=== PATIENT | male | born 1980 | race Caucasian/White ===

== ENCOUNTER 2016-12-27 10:32 | Emergency (ER) | payer BC ==
[~2016-12-27] VITALS: Ht 177.8 cm; Wt 83.0 kg
[~2016-12-27 10:32] MED LIST: ANAPROX DS550 MG PO; AUGMENTIN 875 M1 TAB PO; CELEXA40 MG PO; CLARITIN10 MG PO; CYCLOBENZAPRINE10 MG PO; CYCLOBENZAPRINE5 M3 PO; HYDROCODONE BIT1 T11 PO; IBU800 MG PO; Motrin,Rufen800 MG PO; PREDNICOT20 MG PO; VICODIN 5/500 505 MG PO
[2016-12-27 10:57] VITALS: BP 138/78
[2016-12-27] MEDS ORDERED: 'PARAFON FORTE500 M1 PO (11:06)
[2016-12-27] MEDS ORDERED: NAPROSYN500 MG PO (11:06)
== END 2016-12-27 12:22 | disposition home or self-care (01) ==
LOC: ED 10:32
DX: S39.012A Strain of muscle, fascia and tendon of lower back, initial encounter (principal); R03.0 Elevated blood-pressure reading, without diagnosis of hypertension; F17.200 Nicotine dependence, unspecified, uncomplicated; X58.XXXA Exposure to other specified factors, initial encounter; Y93.89 Activity, other specified; Y92.89 Other specified places as the place of occurrence of the external cause; Y99.8 Other external cause status

== ENCOUNTER 2018-12-08 19:22 | Emergency (ER) | payer BC ==
[~2018-12-08] VITALS: Ht 177.8 cm; Wt 93.0 kg
[~2018-12-08 19:22] MED LIST changes: +'PARAFON FORTE500 M1 PO; +NAPROSYN500 MG PO
[2018-12-08 19:23] VITALS: BP 145/92
[2018-12-08] MEDS ORDERED: IBUPROFEN600 MG PO ×3 (19:41→19:46)
[2018-12-08] MEDS ORDERED: AMOXICILLIN500 M2 PO ×3 (19:41→19:46)
== END 2018-12-08 19:57 | disposition home or self-care (01) ==
LOC: ED 19:22
DX: K02.9 Dental caries, unspecified (principal); F17.200 Nicotine dependence, unspecified, uncomplicated

== ENCOUNTER 2018-12-18 13:16 | Emergency (ER) | payer BC ==
[~2018-12-18] VITALS: Ht 177.8 cm; Wt 93.0 kg
[~2018-12-18 13:16] MED LIST changes: +AMOXICILLIN500 M2 PO; +IBUPROFEN600 MG PO
[2018-12-18 13:18] VITALS: BP 144/94
[2018-12-18] MEDS ORDERED: Motrin,Rufen800 MG PO (13:46)
[2018-12-18] MEDS ORDERED: METHOCARBAMOL500 M1 PO (13:46)
[2018-12-18] MEDS ORDERED: MEDROL DOSEPAK4 MG PO (13:46)
== END 2018-12-18 14:05 | disposition home or self-care (01) ==
LOC: ED 13:16
DX: M54.42 Lumbago with sciatica, left side (principal); E78.00 Pure hypercholesterolemia, unspecified; Z79.2 Long term (current) use of antibiotics; Z79.899 Other long term (current) drug therapy

== ENCOUNTER 2019-08-21 17:24 | Emergency (ER) | payer BC ==
[~2019-08-21] VITALS: Ht 177.8 cm; Wt 87.1 kg
[~2019-08-21 17:24] MED LIST changes: +MEDROL DOSEPAK4 MG PO; +METHOCARBAMOL500 M1 PO
[2019-08-21 17:35] VITALS: BP 139/92
[2019-08-21] MEDS ORDERED: IBU800 MG PO (19:25)
== END 2019-08-21 19:54 | disposition home or self-care (01) ==
LOC: ED 17:24
DX: S93.401A Sprain of unspecified ligament of right ankle, initial encounter (principal); F32.9 Major depressive disorder, single episode, unspecified; E78.00 Pure hypercholesterolemia, unspecified; F17.200 Nicotine dependence, unspecified, uncomplicated; Z79.899 Other long term (current) drug therapy; X50.1XXA Overexertion from prolonged static or awkward postures, initial encounter; Y93.89 Activity, other specified; Y92.89 Other specified places as the place of occurrence of the external cause; Y99.8 Other external cause status

== ENCOUNTER 2020-01-12 23:49 | Emergency (ER) | payer BC ==
[~2020-01-12] VITALS: Ht 177.8 cm; Wt 95.3 kg
[2020-01-13 01:03] LABS: BASO # 0.1 10*3/uL (0.0-0.1); BASO % 0.6 % (0.0-1.0); EOS # 0.5 10*3/uL (0.0-0.4); EOS % 4.3 % (1.0-4.0); HEMATOCRIT 46.4 % (42.0-52.0); LYMPH # 4.3 10*3/uL (1.3-4.4); LYMPH % 34.1 % (27.0-41.0); MEAN CELL VOLUME 93.2 fl (80.0-94.0); MEAN CORPUSCULAR HGB 31.3 pg (27.0-31.0); MEAN CORPUSCULAR HGB CONC 33.6 g/dl (33.0-37.0); MEAN PLATELET VOLUME 9.2 fl (9.6-12.3); MONO % 7.6 % (3.0-9.0); NEUT # 6.6 10*3/uL (2.3-7.9); NEUT % 52.8 % (47.0-73.0); PLATELET COUNT AUTOMATED 381 10*3/uL (130-400); RED BLOOD COUNT 4.98 10*6/uL (4.50-5.90); RED CELL DISTRI WIDTH 12.3 % (0-14.5); WHITE BLOOD COUNT 12.5 10*3/uL (4.8-10.8)
[2020-01-13 01:20] LABS: ALBUMIN 3.7 gm/dl (3.1-4.5); ALKALINE PHOSPHATASE 87 U/L (45-117); BUN 19 mg/dl (7-24); CHLORIDE 107 mmol/L (98-107); CREATININE 1.19 mg/dL (0.70-1.30); SGOT/AST 33 IU/L (3-35); SGPT/ALT 49 U/L (12-78); SODIUM 141 mmol/L (136-145); TOTAL PROTEIN 7.3 gm/dL (6.4-8.2)
[2020-01-13 01:22] LABS: POTASSIUM 4.3 mmol/L (3.5-5.1)
[2020-01-13 02:15] VITALS: BP 124/86
[2020-01-13] MEDS ORDERED: ZITHROMAX250 MG PO ×3 (04:26→04:54)
== END 2020-01-13 04:20 | disposition home or self-care (01) ==
LOC: ED 23:49
PROVIDERS: Emergency Medicine
DX: J18.9 Pneumonia, unspecified organism (principal); Z20.828 Contact with and (suspected) exposure to other viral communicable diseases

== ENCOUNTER 2021-10-13 16:56 | Emergency (ER) | payer BC ==
[~2021-10-13] VITALS: Ht 180.3 cm; Wt 80.7 kg
[~2021-10-13 16:56] MED LIST changes: +ZITHROMAX250 MG PO
[2021-10-13 17:02] VITALS: BP 142/85
== END 2021-10-13 17:56 | disposition left against medical advice (07) ==
LOC: ED 16:56
DX: S09.90XA Unspecified injury of head, initial encounter (principal); W18.39XA Other fall on same level, initial encounter; Y93.89 Activity, other specified; Y92.89 Other specified places as the place of occurrence of the external cause; Y99.8 Other external cause status

== ENCOUNTER 2021-12-06 14:21 | Emergency (ER) | payer BC ==
[~2021-12-06] VITALS: Wt 83.9 kg
[2021-12-06 14:47] VITALS: BP 162/109
[2021-12-06 15:23] LABS: BASO # 0.1 10*3/uL (0.0-0.1); BASO % 0.9 % (0.0-1.0); EOS # 0.4 10*3/uL (0.0-0.4); EOS % 3.6 % (1.0-4.0); HEMATOCRIT 47.5 % (42.0-52.0); LYMPH # 3.4 10*3/uL (1.3-4.4); LYMPH % 27.9 % (27.0-41.0); MEAN CELL VOLUME 93.5 fl (80.0-94.0); MEAN CORPUSCULAR HGB 31.9 pg (27.0-31.0); MEAN CORPUSCULAR HGB CONC 34.1 g/dl (33.0-37.0); MEAN PLATELET VOLUME 9.4 fl (9.6-12.3); MONO # 0.8 10*3/uL (0.1-1.0); MONO % 6.4 % (3.0-9.0); NEUT # 7.5 10*3/uL (2.3-7.9); NEUT % 60.7 % (47.0-73.0); PLATELET COUNT AUTOMATED 302 10*3/uL (130-400); RED BLOOD COUNT 5.08 10*6/uL (4.50-5.90); RED CELL DISTRI WIDTH 12.9 % (0-14.5); WHITE BLOOD COUNT 12.3 10*3/uL (4.8-10.8)
[2021-12-06 15:38] LABS: ALKALINE PHOSPHATASE 72 U/L (45-117); BUN 13 mg/dl (7-24); CHLORIDE 113 mmol/L (98-107); CREATININE 0.81 mg/dL (0.70-1.30); POTASSIUM 4.1 mmol/L (3.5-5.1); SGOT/AST 13 IU/L (3-35); SGPT/ALT 22 U/L (12-78); SODIUM 144 mmol/L (136-145); TOTAL PROTEIN 6.7 gm/dL (6.4-8.2)
[2021-12-06 15:40] LABS: ACT PARTIAL THROMBO TIME 25.2 SECONDS (20.0-32.1); INTERNATIONAL NORM RATIO 0.9 (2.0-3.5)
== END 2021-12-06 16:31 | disposition home or self-care (01) ==
LOC: ED 14:21
PROVIDERS: Emergency Medicine
DX: R07.9 Chest pain, unspecified (principal); R03.0 Elevated blood-pressure reading, without diagnosis of hypertension; E78.00 Pure hypercholesterolemia, unspecified

== ENCOUNTER 2024-05-31 08:17 | Emergency (ER) | payer OTHER ==
[~2024-05-31] VITALS: Ht 177.8 cm; Wt 97.5 kg
[2024-05-31 08:30] VITALS: BP 152/124
[2024-05-31] MEDS ORDERED: SODIUM CHLORIDE 0.9% 1,000 ML IV ONE (08:40)
[2024-05-31] MEDS ORDERED: Ketorolac Tromethamine 15 MG/ML VIAL IV ONE (08:40)
[2024-05-31] MEDS ORDERED: MORPHINE Sulfate 2 MG/ML SYR IV ONE (08:40)
[2024-05-31] MEDS ORDERED: Ondansetron Hydrochloride 4 MG/2 ML VIAL IV ONE (08:40)
[2024-05-31 08:52] LABS: BASO # 0.1 10*3/uL (0.0-0.1); BASO % 0.5 % (0.0-1.0); EOS # 0.3 10*3/uL (0.0-0.4); EOS % 2.6 % (1.0-4.0); HEMATOCRIT 47.2 % (42.0-52.0); MEAN CELL VOLUME 91.5 fl (80.0-94.0); MEAN CORPUSCULAR HGB 31.8 pg (27.0-31.0); MEAN CORPUSCULAR HGB CONC 34.7 g/dl (33.0-37.0); MEAN PLATELET VOLUME 8.7 fl (9.6-12.3); MONO # 0.8 10*3/uL (0.1-1.0); MONO % 6.5 % (3.0-9.0); NEUT # 8.8 10*3/uL (2.3-7.9); NEUT % 67.9 % (47.0-73.0); PLATELET COUNT AUTOMATED 388 10*3/uL (130-400); RED BLOOD COUNT 5.16 10*6/uL (4.50-5.90); RED CELL DISTRI WIDTH 11.9 % (0-14.5); WHITE BLOOD COUNT 12.9 10*3/uL (4.8-10.8)
[2024-05-31 09:11] LABS: BUN 16 mg/dl (9-23); CHLORIDE 107 mmol/L (98-107); LIPASE 30 U/L (12-53); POTASSIUM 3.6 mmol/L (3.4-5.1)
[2024-05-31] MEDS ORDERED: MELOXICAM15 MG PO (09:27)
[2024-05-31] MEDS ORDERED: AVPAK AZITHROM250 M1 PO (09:27)
== END 2024-05-31 09:49 | disposition home or self-care (01) ==
LOC: ED 08:17
PROVIDERS: Emergency Medicine
DX: R10.11 Right upper quadrant pain (principal); J04.0 Acute laryngitis; R05.9 Cough, unspecified

== ENCOUNTER 2024-06-14 22:06 | Emergency (ER) | payer OTHER ==
[~2024-06-14] VITALS: Ht 177.8 cm; Wt 103.0 kg
[~2024-06-14 22:06] MED LIST changes: +AVPAK AZITHROM250 M1 PO; +MELOXICAM15 MG PO
[2024-06-14] MEDS ORDERED: Labetalol Hydrochloride 20 MG/4 ML SYR IV ONE (22:45)
[2024-06-14] MEDS ORDERED: Ondansetron Hydrochloride 4 MG/2 ML VIAL IV ONE (22:45)
[2024-06-14] MEDS ORDERED: HYDROmorphONE Hydrochloride 0.5 MG/0.5 ML SYRINGE IV ONE (23:40)
[2024-06-14] MEDS ORDERED: Metoclopramide Hydrochloride 10 MG/2 ML VIAL IV ONE (23:40)
[2024-06-14] MEDS ORDERED: Pantoprazole Sodium 40 MG VIAL IV ONE (23:40)
[2024-06-14 23:54] LABS: BASO # 0.1 10*3/uL (0.0-0.1); BASO % 0.7 % (0.0-1.0); EOS # 0.4 10*3/uL (0.0-0.4); EOS % 2.6 % (1.0-4.0); HEMATOCRIT 45.1 % (42.0-52.0); MEAN CELL VOLUME 91.5 fl (80.0-94.0); MEAN CORPUSCULAR HGB 31.4 pg (27.0-31.0); MEAN CORPUSCULAR HGB CONC 34.4 g/dl (33.0-37.0); MEAN PLATELET VOLUME 9.2 fl (9.6-12.3); MONO % 7.3 % (3.0-9.0); NEUT % 58.2 % (47.0-73.0); PLATELET COUNT AUTOMATED 318 10*3/uL (130-400); RED BLOOD COUNT 4.93 10*6/uL (4.50-5.90); WHITE BLOOD COUNT 13.8 10*3/uL (4.8-10.8)
[2024-06-15 00:15] LABS: ALKALINE PHOSPHATASE 83 U/L (46-116); BUN 17 mg/dl (9-23); CHLORIDE 108 mmol/L (98-107); LIPASE 27 U/L (12-53); POTASSIUM 3.7 mmol/L (3.4-5.1); SGPT/ALT 27 U/L (5-49); TOTAL PROTEIN 6.8 gm/dL (6.0-8.0)
[2024-06-15 00:37] LABS: BILIRUBIN Negative (Negative); BLOOD Negative (Negative); CLARITY Cloudy (Clear); COLOR Yellow (Yellow); GLUCOSE Negative (Negative); KETONE Trace (Negative); NITRITE Negative (Negative); PH 5.5 (4.5-8.0); SPECIFIC GRAVITY >= 1.030 (1.001-1.030)
[2024-06-15 00:44] LABS: LEUKO ESTERASE Trace (Negative); RBC 0-2 rbc/hpf (0-2)
[2024-06-15 00:45] LABS: BACTERIA 1+; CALCIUM OXALATE CRYSTALS Trace; MUCOUS 1+
[2024-06-15] MEDS ORDERED: Dicyclomine Hydrochloride 20 MG/2 ML VIAL IM ONE (02:45)
[2024-06-15] MEDS ORDERED: DICYCLOMINE HYD20 MG PO (03:45)
[2024-06-15] MEDS ORDERED: ZESTRIL10 MG PO (03:45)
[2024-06-15 03:57] VITALS: BP 143/96
== END 2024-06-15 04:06 | disposition home or self-care (01) ==
LOC: ED 22:06
PROVIDERS: Emergency Medicine
DX: I16.0 Hypertensive urgency (principal); R10.10 Upper abdominal pain, unspecified; Z79.899 Other long term (current) drug therapy

== ENCOUNTER → 2024-06-23 | Outpatient (CLI) | payer OTHER ==
[~2024-06-23] MED LIST changes: +DICYCLOMINE HYD20 MG PO; +SINCALIDE 2 MCG in SODIUM CHLORIDE 0.9% 50 ML IV ONE; +ZESTRIL10 MG PO
== END | disposition home or self-care (01) ==
LOC: NM 07:00
PROVIDERS: ATTEND Family Medicine
DX: R10.11 Right upper quadrant pain (principal)